=== PATIENT | male | born 1990 | race Caucasian/White ===

== ENCOUNTER 2016-10-15 22:05 | Inpatient (IN) | payer MEDICAID ==
[~2016-10-15] VITALS: Ht 182.9 cm; Wt 64.5 kg
[2016-10-15 22:58] LABS: BASOPHILS 1.9 % (0.0-2.0); EOSINOPHILS 1.1 % (0-7); HEMATOCRIT 40.4 % (42.0-54.0); LYMPHOCYTES 32.2 % (15-50); MCH 31.8 pg (26.0-34.0); MCHC 34.7 g/dL (31.0-37.0); MCV 91.8 fL (80.0-100.0); MEAN PLATELET VOLUME 9.2 fL (7.4-10.4); MONOCYTES 14.2 % (2-11); NEUTROPHILS 50.6 % (40-80); PLATELET COUNT 264 10x3/uL (130-400); RDW 12.5 % (11.5-14.5); WBC 4.7 10x3/uL (4.8-10.8)
[2016-10-15 23:11] LABS: ALBUMIN 3.7 g/dL (3.4-5.0); ALKALINE PHOSPHATASE 56 U/L (46-116); ALT (SGPT) 22 U/L (10-68); BILIRUBIN - TOTAL 0.27 mg/dL (0.2-1.3); CALC OSMOLALITY 275 mosm/kg (275-300); CALCIUM 9.1 mg/dL (8.5-10.1); CARBON DIOXIDE 29.5 mmol/L (21.0-32.0); CHLORIDE - SERUM 104 mmol/L (98-107); GLUCOSE 108 mg/dL (74-106); POTASSIUM - SERUM 3.6 mmol/L (3.5-5.1); SODIUM 139 mmol/L (136-145); UREA NITROGEN 4 mg/dL (7-18); eGFR NON AFRICAN AMERICAN > 90 mL/min (90-120)
[2016-10-15 23:37] LABS: UDS - AMPHET NEGATIVE QUAL (NEGATIVE); UDS - BARB NEGATIVE QUAL (NEGATIVE); UDS - BENZO NEGATIVE QUAL (NEGATIVE); UDS - COCAINE NEGATIVE QUAL (NEGATIVE); UDS - METH NEGATIVE QUAL (NEGATIVE); UDS - OPIATE NEGATIVE QUAL (NEGATIVE); UDS - PCP NEGATIVE QUAL (NEGATIVE); UDS - THC POSITIVE QUAL (NEGATIVE)
[2016-10-15 23:40] LABS: APPEARANCE CLEAR (CLEAR); BILIRUBIN NEGATIVE (NEGATIVE); COLOR STRAW (YELLOW); GLUCOSE NEGATIVE (NEGATIVE); KETONE NEGATIVE (NEGATIVE); LEUKOCYTE ESTERASE NEGATIVE (NEGATIVE); NITRITE NEGATIVE (NEGATIVE); PROTEIN NEGATIVE (NEGATIVE); UROBILINOGEN NORMAL (NORMAL)
[2016-10-16] VITALS (24 sets, daily range): BP systolic 101–132; BP diastolic 67–96; Ht 182.9 cm; Wt 64.5 kg
--- NOTE | 2016-10-16 02:15 | NUR ---
PT ARRIVED ON UNIT VIA STRETCHER, PT HOOKED TO MONITORS, PT MAKING GURGLING SOUNDS, CRACKLES HEARD IN ALL LOBES, PT SUCTIONED AT THIS TIME, BLACK AND BLOODY SECRETIONS NOTED, PT HAVING APNEIC EPISODES, DR. ROE NOTIFIED IN ER OF NEED OF INTUBATION, S1S2, CM-ST, PATENT RIGHT FA PIV...BICARB GTT INITIATED AT THIS TIME, PATENT LEFT FA PIV S/L, ABDOMEN IS FLAT WITH ACTIVE BS, PATENT F/C WITH YELLOW UOP, NO EDEMA NOTED, ALL PPP, VSS,
--- NOTE | 2016-10-16 02:20 | NUR ---
PHYSICIANS PAGED FOR UPDATE ON RR STATUS. 0230 DR ROE AT BEDSIDE UPDATE GIVEN ON PT STATUS DECISION MADE TO INTUBATE NO COUGH/GAG REFLEX NOTED BY NT SUCTION. 0240 SUCCESSFUL INTUBATION VENT SETTINGS OBTAINED VSS O2 SAT 98% NEW ORDERS RECIEVED WILL ADM. DR MARKHAM CALLED BACK NEW ORDERS RECIEVED. WILL CONSULT DR BURTON
--- NOTE | 2016-10-16 05:00 | NUR ---
NO CHANGES IN STATUS AT THIS TIME. VSS. WILL MONITOR
--- NOTE | 2016-10-16 07:00 | NUR ---
REPORT RECEIVED. ASSESSMENT COMPLETED. PATIENT REMAINS ON VENT WITH NO SEDATION. PATIENT SUPINE, WITHDRAWLS TO PAIN ONLY. EYES ARE 3 AND FIXED. WILL CONTINUE TO MONITOR.
--- NOTE | 2016-10-16 07:36 | NUR ---
CONTACTED DR SIGNER FOR CONSULT. NO OTHER CHANGES IN STATUS AT THIS TIME. VSS. WILL MONITOR.
--- NOTE | 2016-10-16 10:03 | NUR ---
PATIENT IS ON THE VENT. HE IS AN OVERDOSE OF UNKNOWN SUBSTANCE. PATIENT IS NOT ABLE TO ANSWER ANY QUESTIONS AT THIS TIME AND NO FAMILY HERE TO INTERVIEW. CM TO FOLLOW.
--- NOTE | 2016-10-16 10:18 | NUR ---
NO NOTATION THAT POISON CONTROL NOTIFIED. POISON CONTROL CALLED, SPOKE WITH BEBE. INFORMATION GIVEN REQUESTED. PER BEBE, THERE ARE NO RECOMMENDATIONS IN ADDITION TO THE ONES WE ARE CURRENTLY DOING. HE STATED WITH AMITRIPTYLINE THE CRITICAL PERIOD IS 6-8 HOURS AFTER INGESTIONS. HE STATED THAT THERE MAY STILL BE SOME LATENT EFFECTS OF THE GEODON IF THESE WERE THE MEDICATIONS THE PATIENT TOOK. HE STATED POISON CONTROL WILL CONTINUE TO MONITOR. THIS NURSE WILL CONTINUE TO MONITOR.
--- NOTE | 2016-10-16 11:12 | NUR ---
DR SINGER HERE, VENT SETTINGS CHANGED BY HIM. TV NOW 600, A/C 12. PATIENT REMAINS THE SAME. WILL CONTINUE TO MONITOR.
--- NOTE | 2016-10-16 14:55 | NUR ---
DR JONES HERE. SPOKE WITH ME AND JEANIE GALLEGO. HE STATED THAT DR SHAH WOULD BE ON THIS WEEKEND IF NEEDED, BUT THE PATIENT WAS GOING TO NEED TO BE PLACED IN AN INPATIENT UNIT ON DISCHARGE. KIERSTEN TO WORK ON.
--- NOTE | 2016-10-16 18:18 | NUR ---
PATIENT RESTING COMFORTABLE AT THIS TIME. SKIN FELT WARMER TO TOUCH. TEMPORAL TEMP WAS 99.1. PULLED PATIENTS COVER OFF AND LEFT SHEET OVER HIM. WILL MONITOR.
--- NOTE | 2016-10-16 18:42 | NUR ---
PATIENT HAS WOKE UP. HE IS CURRENTLY TRYING TO COME OUT OF THE BED. PROPOFOL STARTED PER ORDERS. WILL TITRATE UNTIL RELAXED.
--- NOTE | 2016-10-16 19:15 | NUR ---
REPORT RECIEVED, SHIFT ASSESSMENT COMPLETE, PT IS SEDATED ON VENT, AROUSED TO DEEP STIMULI, ON 30% FIO2 WITH 95% O2 SAT. CRACKLES HEARD IN ALL LOBES, S1S2, CM-ST, PATENT RIGHT WRIST PIV....SEE FLOW SHEET...ABDOMENS IS FLAT WITH HYPO BS, PATENT OGT WITH BROWN DRAINAGE NOTED, PATENT F/C WITH YELLOW UOP, NO EDEMA NOTED, ALL PPP, VSS, WILL CON'T TO MONITOR
--- NOTE | 2016-10-16 21:14 | NUR ---
COMPLETE BATH AND LINEN CHANGE, PT TOLERATED WELL
--- NOTE | 2016-10-16 23:21 | NUR ---
REASSESSMENT COMPLETE PER FLOW SHEET. VSS. NO NEW CHNAGES AT THIS TIME. WILL CONTINUE TO MONITOR.
[2016-10-17] VITALS (24 sets, daily range): BP systolic 113–140; BP diastolic 67–88
--- NOTE | 2016-10-17 01:15 | NUR ---
REPOSITIONED FOR COMFORT, WILL CON'T TO MONITOR
--- NOTE | 2016-10-17 03:15 | NUR ---
REASSESSMENT COMPLETE, NO CHANGES NOTED, REPOSITIONED FOR COMFORT, WILL CON'T TO MONITOR
--- NOTE | 2016-10-17 05:16 | NUR ---
REPOSITIONED FOR COMFORT, ORAL CARE PROVIDED
--- NOTE | 2016-10-17 08:51 | NUR ---
Nutrition follow-up: Pt remains intubated; OGT to LIWS with brown drainage Sedated with propofol NPO Recommend starting Pulmocare FS @ 20 ml/hr with gradual increase to goal rate of 55 ml/hr with 25 ml H2O flush every hour. RDN following.
--- NOTE | 2016-10-17 10:17 | NUR ---
PATIENT REMAINS ON THE VENT. HE IS NOT ABLE TO ANSWER QUESTIONS. I HAVE NOT SEEN ANY FAMILY HERE TO INTERVIEW. CM TO FOLLOW.
[2016-10-17 11:19] LABS: BASOPHILS 0.1 % (0.0-2.0); EOSINOPHILS 0 % (0-7); HEMATOCRIT 38.1 % (42.0-54.0); IMMATURE GRANULOCYTES 0.8 % (0-5); LYMPHOCYTES 4.2 % (15-50); MCH 32.1 pg (26.0-34.0); MCHC 34.1 g/dL (31.0-37.0); MEAN PLATELET VOLUME 9.4 fL (7.4-10.4); MONOCYTES 7.9 % (2-11); RBC 4.05 10x6/uL (4.20-6.10); RDW 12.9 % (11.5-14.5)
[2016-10-17 11:23] LABS: MCV 94.1 fL (80.0-100.0); PLATELET COUNT 187 10x3/uL (130-400); WBC 16.6 10x3/uL (4.8-10.8)
--- NOTE | 2016-10-17 11:40 | NUR ---
PLACED ON CPAP PER DR. SINGER.
[2016-10-17 11:50] LABS: ALBUMIN 2.9 g/dL (3.4-5.0); ALKALINE PHOSPHATASE 52 U/L (46-116); ALT (SGPT) 21 U/L (10-68); BILIRUBIN - TOTAL 0.53 mg/dL (0.2-1.3); CALC OSMOLALITY 276 mosm/kg (275-300); CALCIUM 8.7 mg/dL (8.5-10.1); CARBON DIOXIDE 30.8 mmol/L (21.0-32.0); CHLORIDE - SERUM 99 mmol/L (98-107); CREATININE - SERUM 1.1 mg/dL (0.6-1.3); GLUCOSE 118 mg/dL (74-106); POTASSIUM - SERUM 3.4 mmol/L (3.5-5.1); PROTEIN - SERUM 5.9 g/dL (6.4-8.2); SODIUM 139 mmol/L (136-145); eGFR NON AFRICAN AMERICAN 86 mL/min (90-120)
[2016-10-17 11:51] LABS: UREA NITROGEN 8 mg/dL (7-18)
--- NOTE | 2016-10-17 12:56 | NUR ---
REMAINS ON CPAP. AWAITING BLOOD GAS.
--- NOTE | 2016-10-17 15:03 | NUR ---
UPDATE GIVEN TO POISON CONTROL.
--- NOTE | 2016-10-17 16:00 | NUR ---
PT EXTUBATED TO 2L NC PER R.T.
--- NOTE | 2016-10-17 23:30 | NUR ---
1929- REPORT RECVD. CARE ASSUMED. INITIAL ASSMNT COMPLETED. SEE FLOWSHEET FOR ALL FINDINGS. CONFUSED, RESTLESS... GARBLED SPEECH. PERRLA. RESP SHALLOW. LUNGS COARSE THRU OUT. DIM IN BASES. SPO2 97% ON O2 AT [address] ON THE MONITOR. TEMP 99.0. COOLING EFFORTS MADE. PULSES PALP. SCDS ON. ABD SOFT. BSA X4. F/C PATENT WITH CLR YELLOW UOP. HOB UP. C/L IN REACH. CONT CURRENT POC. 2100- NO VISITORS. REMAINS CONFUSED ANT RESTLESS. VSS. CONT POC. 0- REASSESSMENT COMPLETED. SEE FLOWSHEET FOR ALL FINDINGS. CONFUSED, RESTLESS... GARBLED SPEECH. PERRLA. RESP SHALLOW. LUNGS COARSE THRU OUT. DIM IN BASES. SPO2 97% ON O2 AT [address] ON THE MONITOR. AFEBRILE. PULSES PALP. SCDS ON. ABD SOFT. BSA X4. F/C PATENT WITH CLR YELLOW UOP. HOB UP. C/L IN REACH. CONT CURRENT POC.
[2016-10-18] VITALS (24 sets, daily range): BP systolic 119–139; BP diastolic 67–88
--- NOTE | 2016-10-18 01:30 | NUR ---
RESTLESS AND CONFUSED. ATTEMPTS TO GET OOB. BED ALARM ON. VSS. SR ON THE MONITOR. SPO2 97% ON O2 AT 2 LPM NC. HOB UP. C/L IN REACH. CONT CURRENT POC.
--- NOTE | 2016-10-18 03:30 | NUR ---
REASSESSMENT COMPLETED. SEE FLOWSHEET FOR ALL FINDINGS. CONFUSED, RESTLESS... GARBLED SPEECH. PERRLA. RESP SHALLOW. LUNGS COARSE THRU OUT. DIM IN BASES. SPO2 97% ON O2 AT [address] ON THE MONITOR. AFEBRILE. PULSES PALP. SCDS ON. ABD SOFT. BSA X4. F/C PATENT WITH CLR YELLOW UOP. HOB UP. C/L IN REACH. CONT CURRENT POC.
--- NOTE | 2016-10-18 05:00 | NUR ---
REMAINS CONFUSED. RESTLESS. PULLING AT F/C AND PIV... BILATERAL SOFT WRIST RESTRAINTS PLACED PER PROTOCOL PER SR LUCRECIA. VSS. HOB UP. CONT CURRENT POC.
[2016-10-18 05:03] LABS: BASOPHILS 0.1 % (0.0-2.0); EOSINOPHILS 0.1 % (0-7); HEMOGLOBIN 13.2 g/dL (13.5-17.5); IMMATURE GRANULOCYTES 1.3 % (0-5); LYMPHOCYTES 3.3 % (15-50); MCH 31.8 pg (26.0-34.0); MCHC 33.8 g/dL (31.0-37.0); MEAN PLATELET VOLUME 9.5 fL (7.4-10.4); MONOCYTES 6.6 % (2-11); NEUTROPHILS 88.6 % (40-80); PLATELET COUNT 192 10x3/uL (130-400); RBC 4.15 10x6/uL (4.20-6.10); RDW 12.8 % (11.5-14.5); WBC 15.1 10x3/uL (4.8-10.8)
--- NOTE | 2016-10-18 05:20 | NUR ---
RESTING WITH NO DISTRESS. VSS. REMAINS CONFUSED. HOB UP. BED ALARM ON. CONT CURRENT POC.
[2016-10-18 05:24] LABS: ALBUMIN 2.7 g/dL (3.4-5.0); ALKALINE PHOSPHATASE 57 U/L (46-116); ALT (SGPT) 20 U/L (10-68); BILIRUBIN - TOTAL 0.71 mg/dL (0.2-1.3); CARBON DIOXIDE 31.2 mmol/L (21.0-32.0); CHLORIDE - SERUM 101 mmol/L (98-107); CREATININE - SERUM 1.2 mg/dL (0.6-1.3); GLUCOSE 107 mg/dL (74-106); POTASSIUM - SERUM 3.2 mmol/L (3.5-5.1); PROTEIN - SERUM 6.3 g/dL (6.4-8.2); SODIUM 141 mmol/L (136-145); eGFR NON AFRICAN AMERICAN 78 mL/min (90-120)
[2016-10-18 05:29] LABS: CALC OSMOLALITY 280 mosm/kg (275-300); UREA NITROGEN 12 mg/dL (7-18)
[2016-10-18] MEDS ORDERED: KLONOPIN1 MG PO (08:14)
[2016-10-18] MEDS ORDERED: AMITRIPTYLINE100 MG PO (08:15)
[2016-10-18] MEDS ORDERED: ULTRAM50 MG PO (08:15)
[2016-10-18] MEDS ORDERED: DESERYL100 MG PO (08:23)
--- NOTE | 2016-10-18 23:30 | NUR ---
1929- REPORT RECVD. CARE ASSUMED. INITIAL ASSMNT COMPLETED. SEE FLOWSHEET FO ALL FINDINGS. CONFUSED, RESTLESS... GARBLED SPEECH. PERRLA. RESP SHALLOW. LUNGS COARSE THRU OUT. DIM IN BASES. SPO2 97% ON O2 AT [address] ON THE MONITOR. TEMP 99.0. COOLING EFFORTS MADE. PULSES PALP. SCDS ON. ABD SOFT. BSA X4. F/C PATENT WITH CLR YELLOW UOP. RESTRAINTS PER PROTOCOL. HOB UP. C/L IN REACH. CONT CURRENT POC. 2100- NO VISITORS. REMAINS CONFUSED ANT RESTLESS. VSS. RESTRAINTS PER PROTOCOL. HOB UP. C/L IN REACH. CONT POC. 2330- REASSESSMENT COMPLETED. SEE FLOWSHEET FOR ALL FINDINGS. CONFUSED, RESTLESS... GARBLED SPEECH. PERRLA. RESP SHALLOW. LUNGS COARSE THRU OUT. DIM IN BASES. SPO2 97% ON O2 AT [address] ON THE MONITOR. AFEBRILE. PULSES PALP. SCDS ON. ABD SOFT. BSA X4. F/C PATENT WITH CLR YELLOW UOP. RESTRAINTS PER PROTOCOL. HOB UP. C/L IN REACH. CONT CURRENT POC.
[2016-10-19] VITALS (22 sets, daily range): BP systolic 107–163; BP diastolic 52–89
--- NOTE | 2016-10-19 01:27 | NUR ---
RESTING WITH NO DISTRESS. VSS. ST ON THE MONITOR. REMAINS CONFUSED. REPOSITONS SELF IN BED. RESTLESS AT TIMES. SPO2 96% ON O2 AT 4 LPM NC. HOB UP. C/L IN REACH. REMAINS IN RESTRAINTS FOR SAFETY. CONT CURRENT POC.
--- NOTE | 2016-10-19 03:00 | NUR ---
BATH GIVEN. LINENS CHANGED, RESTRAINTS REMOVED. MORE ALERT. VERBALIZES UNDERSTANDING. VSS. PT HAD REMOVED O2...ABGS REFLECT RA. SPO2 92% ON RA. PLACED ON O2 AT 2 LPM. WILL CONT TO WEAN TOLERATED.
--- NOTE | 2016-10-19 03:30 | NUR ---
REASSESSMENT COMPLETED PER FLOWSHEET. SEE FOR ALL FINDINGS. ALERT AND ORIENTED AT THIS TIME. SPEECH CLEAR..VERBALIZES NEEDS. RESP SHALLOW. LUNGS COARSE. COUGH/DB ENCUOURAGED. O2 AT [address] ON THE MONITOR. AFEBRILE. PASSING FLATUS. BSA X4. F/C PATENT WITH CONCENTRATED UOP. HOB UP. C/L IN REACH. BED ALARM ON. CONT CURRENT POC.
[2016-10-19 05:17] LABS: BASOPHILS 0.3 % (0.0-2.0); EOSINOPHILS 1.1 % (0-7); HEMATOCRIT 37.7 % (42.0-54.0); HEMOGLOBIN 12.6 g/dL (13.5-17.5); IMMATURE GRANULOCYTES 0.5 % (0-5); LYMPHOCYTES 3.9 % (15-50); MCH 31.2 pg (26.0-34.0); MCHC 33.4 g/dL (31.0-37.0); MCV 93.3 fL (80.0-100.0); MEAN PLATELET VOLUME 9.3 fL (7.4-10.4); MONOCYTES 7.5 % (2-11); NEUTROPHILS 86.7 % (40-80); PLATELET COUNT 210 10x3/uL (130-400); RBC 4.04 10x6/uL (4.20-6.10); RDW 12.7 % (11.5-14.5); WBC 14.6 10x3/uL (4.8-10.8)
--- NOTE | 2016-10-19 05:20 | NUR ---
RESTING IN BED WITH NO DISTRESS. APPROPRIATE BEHAVIORS SEEN. VSS. SPO2 96% ON O2 AT 2 LPM NC. HOB UP. C/L IN REACH. CONT CURRENT POC.
[2016-10-19 05:57] LABS: ALBUMIN 2.4 g/dL (3.4-5.0); ALKALINE PHOSPHATASE 63 U/L (46-116); ALT (SGPT) 18 U/L (10-68); CALCIUM 8.4 mg/dL (8.5-10.1); CARBON DIOXIDE 26.9 mmol/L (21.0-32.0); CHLORIDE - SERUM 102 mmol/L (98-107); GLUCOSE 103 mg/dL (74-106); POTASSIUM - SERUM 3.6 mmol/L (3.5-5.1); PROTEIN - SERUM 6.5 g/dL (6.4-8.2); SODIUM 138 mmol/L (136-145); eGFR NON AFRICAN AMERICAN > 90 mL/min (90-120)
[2016-10-19 05:58] LABS: CALC OSMOLALITY 277 mosm/kg (275-300); UREA NITROGEN 19 mg/dL (7-18)
--- NOTE | 2016-10-19 14:28 | NUR ---
PT MOTHER VISITED. LEAVING UPSET DUE TO PT "ASKING ME TO GIVE HIM PAIN PILLS". PT REQUESTS TO CALL HIS AUNT EDGAR. INFORMED THAT HE CAN NOT CALL BUT THIS NURSE WOULD CALL WITH HIS PERMISSION. STATES HE "IS GONNA WIG OUT IN HERE" NO FURTHER NEEDS.
--- NOTE | 2016-10-19 23:30 | NUR ---
1929-REPORT RECVD. CARE ASSUMED. INITIAL ASSMNT COMPLETED. SEE FLOWSHEET FOR ALL FINDINGS. SUICIDAL PRECAUTIONS IN PLACE. RESTING WITH NO DISTRESS. VSS. SPO2 95% ON RA. OCC WEAK STAR ROUTE MAIL DRIVER COUGH SEEN. LUNGS REMAIN COARSE THRU OUT ALL LOBES. DIM IN BASES. ST ON THE MONITOR. AFEBRILE. REFUSES SCDS. UP AD LITA TO BSC. VOIDING NO DIFF TO URINAL. PLEASANT AND COOPERATIVE AT THIS TIME. DENIES DISCOMFORT/NEEDS. PO FLUIDS AN REG DIET PROVIDED PER REQUEST. HOB UP. C/L IN REACH. CONT CURRENT POC. 2100- NO VISITORS. RESTING WITH EYES CLOSED. NO NEEDS VOICED. C/L IN REACH. 2199- HS SNACK AND PO FLUIDS PROVIDED. 2329- REASSESSMENT COMPLETED. SEE FLOWSHEET FOR ALL FINDINGS. RESTING WITH NO DISTRESS. VSS. SPO2 95% ON RA. OCC WEAK STAR ROUTE MAIL DRIVER COUGH SEEN. LUNGS REMAIN COARSE THRU OUT ALL LOBES. DIM IN BASES. ST ON THE MONITOR. AFEBRILE. REFUSES SCDS. UP AD LITA TO BSC. VOIDING NO DIFF TO URINAL. PLEASANT AND COOPERATIVE AT THIS TIME. DENIES DISCOMFORT/NEEDS. PO FLUIDS AN REG DIET PROVIDED PER REQUEST. HOB UP. C/L IN REACH. CONT CURRENT POC.
[2016-10-20] VITALS (21 sets, daily range): BP systolic 94–143; BP diastolic 64–95
--- NOTE | 2016-10-20 01:20 | NUR ---
RESTING WITH NO DISTRESS. VSS. C/L IN REACH. .CONT POC.
--- NOTE | 2016-10-20 03:25 | NUR ---
REASSESSMENT COMPLETED. SEE FLOWSHEET FOR ALL FINDINGS. RESTING WITH NO DISTRESS. VSS. SPO2 95% ON RA. OCC WEAK REGROOVER COUGH SEEN. LUNGS REMAIN COARSE THRU OUT ALL LOBES. DIM IN BASES. ST ON THE MONITOR. AFEBRILE. REFUSES SCDS. UP AD LITA TO BSC. VOIDING NO DIFF TO URINAL. PLEASANT AND COOPERATIVE AT THIS TIME. DENIES DISCOMFORT/NEEDS. PO FLUIDS AND REG DIET PROVIDED PER REQUEST. HOB UP. C/L IN REACH. CONT CURRENT POC.
[2016-10-20 04:49] LABS: BASOPHILS 0.3 % (0.0-2.0); EOSINOPHILS 5.1 % (0-7); HEMATOCRIT 35.3 % (42.0-54.0); HEMOGLOBIN 11.8 g/dL (13.5-17.5); IMMATURE GRANULOCYTES 0.6 % (0-5); LYMPHOCYTES 8.6 % (15-50); MCH 31.1 pg (26.0-34.0); MCHC 33.4 g/dL (31.0-37.0); MCV 93.1 fL (80.0-100.0); MEAN PLATELET VOLUME 9.5 fL (7.4-10.4); MONOCYTES 11.6 % (2-11); NEUTROPHILS 73.8 % (40-80); PLATELET COUNT 273 10x3/uL (130-400); RBC 3.79 10x6/uL (4.20-6.10); RDW 12.6 % (11.5-14.5); WBC 8.7 10x3/uL (4.8-10.8)
[2016-10-20 05:08] LABS: ALBUMIN 2.3 g/dL (3.4-5.0); ALKALINE PHOSPHATASE 58 U/L (46-116); BILIRUBIN - TOTAL 0.55 mg/dL (0.2-1.3); CALC OSMOLALITY 276 mosm/kg (275-300); CALCIUM 8.7 mg/dL (8.5-10.1); CARBON DIOXIDE 27.3 mmol/L (21.0-32.0); CHLORIDE - SERUM 103 mmol/L (98-107); CREATININE - SERUM 0.9 mg/dL (0.6-1.3); GLUCOSE 102 mg/dL (74-106); POTASSIUM - SERUM 3.6 mmol/L (3.5-5.1); PROTEIN - SERUM 6.5 g/dL (6.4-8.2); SODIUM 138 mmol/L (136-145); UREA NITROGEN 15 mg/dL (7-18); eGFR NON AFRICAN AMERICAN > 90 mL/min (90-120)
[2016-10-20 05:16] LABS: ALT (SGPT) 25 U/L (10-68)
--- NOTE | 2016-10-20 05:30 | NUR ---
RESTING WITH NO DISTRESS. VSS. ST ON THE MONITOR. DENIES NEEDS/DISCOMFORT. UP AD LITA TO BSC. VOIDING TO URINAL. PLEASANT. NO BEHAVIORS. HOB UP. C/L IN REACH. CONT CURRENT POC.
--- NOTE | 2016-10-20 07:30 | NUR ---
ASSESSMENT COMPLETE. AAO X4. AGITATED BECAUSE HE "HAS NOT BEEN RECEIVING HIS KLONOPIN." I TOLD HIM WE WOULD WAIT TILL THE DOCTOR GOT HERE TO EVALUATE HIS MEDICATIONS. HE SAID "IF I DONT GET MY MEDICATIONS I MIGHT WELL LEAVE." BEGAN RAISING HIS VOICE, I TOLD HIM I COULDNT RESTART THEM WITHOUT A DOCTOR ORDERING SO WE HAD TO WAIT TILL THE DOCTOR GOT HERE. THE PATIENT SAID "OKAY." BUT BECAME WITHDRAWN. S1S2 NOTED, RADIAL AND PEDAL PULSES PALP. SINUS TACHYCARDIA. DIMINISHED RLL, LLL. CRACKLES IN RUL, RML, PAPITO. ROOM AIR. HYPOACTIVE BOWEL SOUNDS X4. REPORTS DIARRHEA. RT WRIST PIV SL. FOR OTHER ASSESSMENT FINDINGS SEE FLOWSHEET.
--- NOTE | 2016-10-20 09:25 | NUR ---
NO VISITORS AT THIS TIME. REQUESTS KLONOPIN AGAIN. CALLED DR. SHIPMAN, NEW ORDERS RECEIVED
--- NOTE | 2016-10-20 10:09 | NUR ---
Nutrition follow-up: Diet: Regular PO intake ~75% of meals Labs reviewed Wt: 154# +BM RDN following.
--- NOTE | 2016-10-20 10:50 | NUR ---
DR. SHIPMAN AT BEDSIDE.
--- NOTE | 2016-10-20 11:15 | NUR ---
REASSESSMENT COMPLETE. PATIENT NOW CALM, NO AGITATION NOTED. FOR OTHER ASSESSMENT FINDINGS SEE FLOWSHEET. DENIES CURRENT SUICIDAL IDEATION.
--- NOTE | 2016-10-20 11:38 | NUR ---
SPOKE WITH PATIENT'S MOTHER PER PATIENT REQUEST, SAID SHE WOULD NOT BE COMING UP TODAY BUT WOULD SEE IF OTHER RELATIVES COULD COME VISIT
--- NOTE | 2016-10-20 11:48 | NUR ---
NOTIFIED PHARMACY THAT [facility] IS OUT OF VOLTAREN AND WELLBUTRIN
--- NOTE | 2016-10-20 13:02 | NUR ---
SPOKE WITH PATIENT'S AUNT PER PATIENT REQUEST. SAID SHE WOULD BE UP TOMORROW.
--- NOTE | 2016-10-20 13:16 | CN ---
PATIENT NAME:RACHEL HEATH MEDICAL RECORD: [id number] : 90 LOCATION:[facility].2306 ADMIT DATE: 10/16/16 ACCOUNT: [id number] CONSULTING PHYSICIAN: TOMASZ JONES MD REFERRING PHYSICIAN: ABDIRAHMAN RICHEY MD DATE OF CONSULTATION: 10/16/2016 IDENTIFYING DATA: The patient is 26 years old and he is admitted to the hospital secondary to an overdose. CHIEF COMPLAINT: None. HISTORY OF PRESENT ILLNESS: The patient apparently is chronically mentally ill. He called EMS or told his family he was going to kill himself and they called the EMS and the patient was brought to the hospital. Interestingly, his urine drug screen was only positive for marijuana and his home medications include both an opiate and a benzodiazepine. In addition to the opiate and benzodiazepine, he also takes 2 antipsychotics and amitriptyline. Nurse tells me that a family member called and said that they think he primarily overdosed on the amitriptyline and Geodon. This would make sense given the outcome of the urine drug screen. The patient unfortunately had respiratory distress. He is currently on a ventilator and cannot be interviewed. ASSESSMENT: Overdose 1. Overdose. 2. Probable major depression with psychosis versus schizophrenia or bipolar disorder. PLAN: The patient is not interviewable, please call when he. Given his situation, I am absolutely certain that he is going to require inpatient psychiatric care and I would refer him to the closest receiving facility that will accept him. There is little or no explanation that I cannot imagine that would convince me that he is appropriate for outpatient given the fact that he is on a ventilator, deliberately took an overdose and has a known history of mental illness. TRANSINT:[id number] Voice Confirmation ID: [id number] DOCUMENT ID: [id number] TOMASZ JONES MD at 1316 CC: [id number] DICTATION DATE: 10/16/16 1500 FEDERAL MEDIATOR: 10/16/16 1741 ADM IN [facility] [address] [place] [address]
--- NOTE | 2016-10-20 15:00 | NUR ---
REASSESSMENT COMPLETE. SEE FLOWSHEET FOR DETAILS.
--- NOTE | 2016-10-20 15:33 | NUR ---
CALLED LONG TERM, SENT FAX DOWN OF CONSULT. THEY SAID THEY WOULD CONTACT THE CONSULTED PSYCH PHYSCIAN
--- NOTE | 2016-10-20 17:30 | NUR ---
DR. SHIPMAN IN UNIT. ASKED HER IF PATIENT COULD HAVE SOME "SLEEPING MEDICINE" PER PATIENT REQUEST. SHE SAID NO. PATIENT WILL RECEIVE EVENING DOSE OF KLONOPIN.
--- NOTE | 2016-10-20 18:54 | NUR ---
PATIENT SAID "ONCE THE PSYCH DOCTOR COMES TOMORROW, I'M GETTING OUT OF HERE, I DONT CARE WHAT HE SAYS, I'M GOING HOME." I ASKED PATIENT IF HE WAS FEELING ANXIOUS AND WOULD LIKE HIS KLONOPIN NOW, HE SAID HE WOULD LIKE IT NOW. WILL GIVE EARLY WHEN MED COUNT IS COMPLETED.
--- NOTE | 2016-10-20 19:15 | NUR ---
REPORT RECEIVED AND CARE ASSUMED. INITIAL SHIFT ASSESSMENT COMPLETED. PT COOPERATIVE AND PLEASANT AAOX4. ADMITS HE IS IN PAIN STATING HIS LEFT HAND HURTS ALL THE TIME DUE TO OLD INJURY. REQUESTS MEDICATION FOR PAIN TO BE GIVEN LATER. PT IS IN DROPLET ISOLATION DUE TO MRSA IN SPUTUM. IS MONITORED WITH SUICIDAL PRECAUTIONS WELL. BED IS IN DIRECT VIEW OF NURSING STAFF. CONTINUE TO MONITOR PER STANDARD ICU PROTOCOL WITH ALL ALARMS IN PLACE.
--- NOTE | 2016-10-20 21:00 | NUR ---
HS SNACK PROVIDED ATE 100%, MEDS GIVEN WITH NO SWALLOWING DIFFICULTY. NO VISITORS AT THIS TIME
--- NOTE | 2016-10-20 23:37 | NUR ---
RECEIVED REPORT AT 2255. 2300 ASSESSMENT COMPLETED. SEE FLOWSHEET FOR DETAILS. PT AWAKE AND ORIENTED X4. VSS WILL CONTINUE TO MONITOR.
[2016-10-21] VITALS (14 sets, daily range): BP systolic 121–152; BP diastolic 71–100
--- NOTE | 2016-10-21 01:00 | NUR ---
BROUGHT PT SODA PER REQUEST. NO OTHER CHANGES AT THIS TIME. VSS. WILL MONITOR.
--- NOTE | 2016-10-21 03:14 | NUR ---
RE ASSESSMENT COMPLETED SEE ASSESSMENT FOR FULL DETAILS. VSS WILL CONTINUE TO MONITOR.
[2016-10-21 04:59] LABS: BASOPHILS 0.4 % (0.0-2.0); EOSINOPHILS 6.6 % (0-7); HEMATOCRIT 35.7 % (42.0-54.0); IMMATURE GRANULOCYTES 0.4 % (0-5); LYMPHOCYTES 16.3 % (15-50); MCHC 33.6 g/dL (31.0-37.0); MCV 92.2 fL (80.0-100.0); MEAN PLATELET VOLUME 9.1 fL (7.4-10.4); MONOCYTES 15.9 % (2-11); NEUTROPHILS 60.4 % (40-80); PLATELET COUNT 252 10x3/uL (130-400); RBC 3.87 10x6/uL (4.20-6.10); RDW 12.5 % (11.5-14.5); WBC 4.9 10x3/uL (4.8-10.8)
--- NOTE | 2016-10-21 05:00 | NUR ---
CLEANED PT ROOM. GAVE PT CHANNEL GUIDE. NO OTHER CHANGES AT THIS TIME. VSS. WILL MONITOR.
[2016-10-21 05:13] LABS: ALBUMIN 2.4 g/dL (3.4-5.0); ALKALINE PHOSPHATASE 57 U/L (46-116); CALC OSMOLALITY 277 mosm/kg (275-300); CALCIUM 8.8 mg/dL (8.5-10.1); CARBON DIOXIDE 28.9 mmol/L (21.0-32.0); CHLORIDE - SERUM 104 mmol/L (98-107); CREATININE - SERUM 0.9 mg/dL (0.6-1.3); GLUCOSE 106 mg/dL (74-106); MAGNESIUM - SERUM 2.1 mg/dL (1.8-2.4); PHOSPHOROUS 4.4 mg/dL (2.5-4.9); POTASSIUM - SERUM 3.6 mmol/L (3.5-5.1); PROTEIN - SERUM 6.7 g/dL (6.4-8.2); SODIUM 139 mmol/L (136-145); UREA NITROGEN 12 mg/dL (7-18); eGFR NON AFRICAN AMERICAN > 90 mL/min (90-120)
[2016-10-21 05:20] LABS: ALT (SGPT) 53 U/L (10-68)
--- NOTE | 2016-10-21 07:00 | NUR ---
REC'D REPORT AND RESUMED CARE, AAA, VSS, DENIES PAIN AT THIS TIME, ASSESSMENT COMPLETE PER FLOWSHEET, CALL LIGHT IN REACH, SELF REPOSITIONS
--- NOTE | 2016-10-21 09:00 | NUR ---
AM MEDS AND BREAKFAST TRAY TO BEDSIDE, MEDS TAKEN WITHOUT DIFFICULTY, INDEPENDENT WITH TRAY SET UP AND EATING
--- NOTE | 2016-10-21 10:00 | NUR ---
SPUTUM EXPECTORATE COLLECTED BY PT, TAKEN TO LAB FOR EVAL
--- NOTE | 2016-10-21 10:20 | NUR ---
VOLTAREN 75 MG PO GIVEN FOR HAND PAIN 02/28 PER NOV ORDER
--- NOTE | 2016-10-21 10:43 | NUR ---
DR SHIPMAN AT BEDSIDE, STATUS UPDATED, PT AWAITING INPATIENT PLACEMENT
--- NOTE | 2016-10-21 12:25 | NUR ---
LUNCH TRAY TO BEDSIDE, INDEPENDENT WITH SET UP AND EATING
--- NOTE | 2016-10-21 12:40 | NUR ---
* Is the patient Alert and Oriented? Yes 0 * PCP KEVIN JUAREZ AT DR. CHAPPELL'S OFFICE 0 * Pharmacy [facility] 0 * Preadmission Environment Home with Family 0 * ADLs Independent 0 * Equipment None 0 * List name and contact numbers for known caregivers / representatives who currently or will assist patient after discharge: AUNT: EDGAR EVANS [phone] 0 * Community resources currently utilized None 0 * Additional services required to return to the preadmission environment? Yes 0 * Can the patient safely return to the preadmission environment? No 0 * Has this patient been hospitalized within the prior 30 days at any hospital? No 0 PATIENT STATES HE LIVES AT HOME WITH HIS AUNT AND UNCLE. HE STATES HIS AUNT ASSIT HIM WITH MEDICATION ADMINISTRATION. PATIENT STATES HE SEES KEVIN JUAREZ AT DR. CHAPPELL'S OFFICE. HE GETS HIM MEDS FROM [facility]. PATIENT IS AGREEING TO GO TO INPATIENT PSYCH FACILITY FOR TREATMENT. PATIENT STATES HE HAS BEEN TO SEVERAL PSYCH FACILITIES OVER THE YEARS. WILL SEEK PLACEMENT WHEN PATIENT IS MEDICALLY STABLE.
--- NOTE | 2016-10-21 13:25 | NUR ---
TRANSFERRED VIA BED TO 2316, ANIVALO, VSS, DENING PAIN, NO NEEDS AT THIS TIMEREPORT GIVEN TO JEANIE CRISTOBAL
--- NOTE | 2016-10-21 19:30 | NUR ---
ASSESSMENT COMPLETE. S1S2. RR CLEAR BILATERALLY IN UPPER LOBES; DIMINISHED BILATERALLY IN MID/LOWER LOBES. AAO. DROPLET ISO. PT AMBULATES INDEPENDENTLY; GAIT STEADY. RADIAL AND PEDAL PULSE +2. PERRLA. ON ROOM AIR.
--- NOTE | 2016-10-21 21:00 | NUR ---
PT TOOK MEDS W/O DIFFICULTY. DENIES PAIN. DENIES ANY FURTHER NEEDS AT THIS TIME. CALL LIGHT IN REACH. WILL CONTINUE TO MONITOR.
--- NOTE | 2016-10-21 23:15 | NUR ---
REASSESSMENT COMPLETE. NO CHANGES FROM PREVIOUS ASSESSMENT. CALL LIGHT IN REACH. WILL CONTINUE TO MONITOR.
--- NOTE | 2016-10-22 01:15 | NUR ---
PT RESTING; EYES CLOSED. VSS. CALL LIGHT IN REACH. WILL CONTINUE TO MONITOR.
[2016-10-22 03:00] VITALS: BP 115/76
--- NOTE | 2016-10-22 03:30 | NUR ---
REASSESSMENT COMPLETE. NO CHANGES FROM PREVIOUS ASSESSMENT. CALL LIGHT IN REACH. WILL CONTINUE TO MONITOR.
--- NOTE | 2016-10-22 04:45 | NUR ---
PT INDEPENDENTLY COMPLETED BATH; NEW GOWN SUPPLIED.
[2016-10-22 05:05] LABS: BASOPHILS 0.7 % (0.0-2.0); HEMATOCRIT 37.7 % (42.0-54.0); HEMOGLOBIN 12.6 g/dL (13.5-17.5); IMMATURE GRANULOCYTES 0.7 % (0-5); MCH 30.9 pg (26.0-34.0); MCHC 33.4 g/dL (31.0-37.0); MCV 92.4 fL (80.0-100.0); NEUTROPHILS 59.6 % (40-80); RBC 4.08 10x6/uL (4.20-6.10); RDW 12.6 % (11.5-14.5); WBC 5.4 10x3/uL (4.8-10.8)
[2016-10-22 05:14] LABS: PLATELET COUNT 312 10x3/uL (130-400)
[2016-10-22 05:37] LABS: ALBUMIN 2.5 g/dL (3.4-5.0); ALKALINE PHOSPHATASE 49 U/L (46-116); ALT (SGPT) 56 U/L (10-68); CALC OSMOLALITY 276 mosm/kg (275-300); CALCIUM 8.7 mg/dL (8.5-10.1); CARBON DIOXIDE 30.3 mmol/L (21.0-32.0); CHLORIDE - SERUM 103 mmol/L (98-107); CREATININE - SERUM 0.9 mg/dL (0.6-1.3); GLUCOSE 95 mg/dL (74-106); POTASSIUM - SERUM 3.4 mmol/L (3.5-5.1); PROTEIN - SERUM 6.7 g/dL (6.4-8.2); SODIUM 139 mmol/L (136-145); UREA NITROGEN 9 mg/dL (7-18); eGFR NON AFRICAN AMERICAN > 90 mL/min (90-120)
[2016-10-22 07:00] VITALS: BP 120/75
--- NOTE | 2016-10-22 07:45 | NUR ---
REPORT RECD PT CARE ASSUMED. PT IS ALERT AND ORINETED X 4. S1S2 NOTED, SR PER CM. SEE SHIFT ASSESSMENT FOR FURTHER DETAILS. PT REQUESTS TO SPEAK TO CHARGE NURSE. PATTERN CLERK SPEAKING WITH PT.
--- NOTE | 2016-10-22 07:50 | NUR ---
PATIENT HAS NORMAL DEBORA IN SPUTUM. I HAVE CONTACTED [facility] IN [place]. I SPOKE WITH PRITI AND HAVE FAXED PATIENT'S INFORMATION. WILL AWAIT CALL BACK.
--- NOTE | 2016-10-22 08:00 | NUR ---
BREAKFAST TRAY PROVIDED TO PT. PT REFUSES TRAY BUT ACCEPTS COFFEE.
--- NOTE | 2016-10-22 10:36 | NUR ---
NUTRITION MONITORING & EVAL CHART REVIEWED. REGULAR DIET. NOTE DC PLANNING. RD FOLLOWING
[2016-10-22 11:00] VITALS: BP 122/76
--- NOTE | 2016-10-22 12:00 | NUR ---
BREAKFAST PROVIDED TO PT. PT INDEPENDENT FEEDER.
--- NOTE | 2016-10-22 12:58 | NUR ---
PATIENT IS ACCEPTED TO [facility] IN [place]. I SPOKE WITH PRITI. PATIENT IS TO GO TO ROOM 225 BED 1. THE ACCEPTING PHYSCIAN IS DR. MARTINEZ. PATIENT CARE NURSE, RADHA, IS NOTIFIED OF ACCEPTANCE AND WILL CALL REPORT. SHE WILL LET PATIENT KNOW HE IS ACCEPTED AND SHE WILL CALL HIS AUNT TO LET HER KNOW HE IS ACCEPTED AND WHERE HE IS GOING.
[2016-10-22] MEDS ORDERED: LEVAQUIN750 MG PO (13:45)
[2016-10-22] MEDS ORDERED: CLEOCIN HCL300 MG PO (13:45)
[2016-10-22] MEDS ORDERED: WELLBUTRIN XL150 M1 PO (13:47)
[2016-10-22 15:00] VITALS: BP 112/76
--- NOTE | 2016-10-22 15:00 | NUR ---
[facility] HERE TO TRANSFER PT. ALL PAPERS HAVE BEEN SIGNED AND DOCUMENTED APPROPRIATLEY. REPORT HAS BEEN CALLED TO RECVING FACILTY AND PT IS STABLE FOR TRANSPORT.
--- NOTE | 2016-10-22 17:36 | CN ---
PATIENT NAME:RACHEL HETAH MEDICAL RECORD: [id number] : 90 LOCATION:[facility].2316 ADMIT DATE: 10/16/16 ACCOUNT: [id number] CONSULTING PHYSICIAN: TOMASZ JONES MD REFERRING PHYSICIAN: ABDIRAHMAN RICHEY MD DATE OF CONSULTATION: 10/21/2016 Psychiatric Consultation IDENTIFYING DATA: The patient is [id number] and he was admitted to the hospital on a voluntary basis secondary to an overdose. CHIEF COMPLAINT: Depression. HISTORY OF PRESENT ILLNESS: The patient apparently told his family was going to kill himself and then took a polysubstance overdose. By the time he was brought to the hospital, he was unresponsive and had to be intubated. He has been in the intensive care unit for several days now. He is now extubated, medically stable, a little bit hoarse, but able to talk with me just fine. The patient endorses numerous life stressors, ongoing psychosocial issues and many neurovegetative depressive symptoms. He denies evidence of a thinking disorder, but clearly his disorganization would be consistent with that and he also has an extensive psychiatric history and is taking numerous psychoactive medications including antipsychotics. MENTAL STATUS EXAMINATION: The patient is awake, alert and oriented to person, place, time and situation. The patient has a mood that is depressed and affect that is constricted. Thought processes are disorganized. Memory, concentration and abstraction abilities are moderately impaired and he is ambivalent about thoughts of self harm, but denies any thoughts of harming others or psychotic symptoms. ASSESSMENT: 1. Major depression versus bipolar disorder. 2. Status post overdose. PLAN: The patient is in need of inpatient psychiatric care. ____ for psychiatric difficulties. I would recommend that he be transferred to a psychiatric facility once medically stabilized. TRANSINT:[id number] Voice Confirmation ID: [id number] DOCUMENT ID: [id number] TOMASZ JONES MD at 1736 CC: [id number] DICTATION DATE: 10/21/16 1246 ARCGIS DEVELOPER: 10/21/16 1356 DIS IN 10/22/16 [place] [address]
--- NOTE | 2016-10-31 12:39 | CN ---
PATIENT NAME:RACHEL HEATH MEDICAL RECORD: [id number] : 89 LOCATION:[id number] ADMIT DATE: 10/16/16 ACCOUNT: [id number] CONSULTING PHYSICIAN: HANDY SINGER MD REFERRING PHYSICIAN: ELEONORA RICHEY MD DATE OF CONSULTATION: 10/16/2016 Pulmonary Consultation CONSULT REQUESTING PHYSICIAN: Eleonora Richey MD REASON FOR CONSULTATION: Acute respiratory failure, vent management. HISTORY OF PRESENT ILLNESS: Mr. Heath a 26-year-old gentleman who is now orally intubated and unresponsive. The history was taken by reviewing the patient's chart and talking to Dr. Richey and the nursing staff. The patient called EMS. He walked to the ambulance and the patient was brought into the hospital and then admitted to the ICU progressively. His mental status changes was getting worse and then he became unresponsive and the patient was electively orally intubated to protect his airway. He has multiple medications at home, hydrocodone, clonazepam, trazodone, risperidone, Geodon and amitriptyline as well as tramadol. His urine drug screen was only positive for the THC. There was also some intraventricular conduction delay and possibly he might have taken some amitriptyline. REVIEW OF SYSTEMS: Mainly in the history of present illness. PAST MEDICAL HISTORY: Multiple psych issues, on multiple medications. PAST SURGICAL HISTORY: Left hand for construction surgery times 3 after a crush injury. ALLERGIES: HE IS ALLERGIC TO PENICILLIN. HOME MEDICATIONS: As in HPI. PERSONAL AND SOCIAL HISTORY: The patient' smoking history is not known, but he is using marijuana possibly as a recreational drugs. FAMILY HISTORY: Unknown. PHYSICAL EXAMINATION: GENERAL: Now, the patient is orally intubated and sedated. VITAL SIGNS: The blood pressure is 117/79, pulse is 91, respiration is 14, temperature is 97.5, SPO2 is 100% on 30% oxygen. He is on assist control mechanical ventilation. HEENT: Conjunctivae are pink, sclerae nonicteric. NECK: Supple. No JVD. CHEST: Excursion is minimal equally on both sides. There is no wheeze, no rales. HEART: Rhythm regular, normal sound, no murmur. ABDOMEN: Soft, bowel sounds present. No hepatosplenomegaly. RECTAL: Deferred. EXTREMITIES: No cyanosis, no clubbing. There is no pedal edema. SKIN: Warm, normal turgor. CONSULT REPORT [id number] RACHEL HEATH CENTRAL NERVOUS SYSTEM: The patient is awake and alert. There are no obvious cranial nerve abnormality. The gait was not tested. IMAGING: Chest radiograph: There is hyperinflation, no acute infiltrate. The ET tube is in good position. LABORATORY DATA: CBC: The WBC of 4.7, hemoglobin 14, hematocrit 40.4, the platelet count 254. Chemistry: Sodium 139, potassium 3.6, BUN is 4, creatinine is 1, glucose 108. ABG: The pH is 7.52, pCO2 of 37.9, the pO2 is 130, the bicarbonate is 31. IMPRESSION: 1. Acute respiratory failure secondary to drug overdose. 2. Drug overdose. 3. Acute mental status changes secondary to multi-drug overdose. 4. Suicidal ideation, suicidal attempt. RECOMMENDATION: 1. We will continue mechanical ventilation. When the patient becomes more awake and alert, we will wean him and adjust the ventilator setting. 2. GI and DVT stress ulcer prevention. 3. Follow up labs and chest radiograph. 4. Psych consult when the patient is extubated. Discuss with Dr. Richey. Dr. Richey, once again, thank you for involving me in the care of Mr. Heath. The critical care time is 40 minutes. TRANSINT:[id number] Voice Confirmation ID: [id number] DOCUMENT ID: [id number] HANDY SINGER MD at 1239 CC: VEL CHAPPELL [id number] DICTATION DATE: 10/16/16 1131 POWERHOUSE MECHANIC SUPERVISOR: 10/16/16 1215 DIS IN 10/22/16 [place] [id number] [place] [id number]
== END 2016-10-22 15:23 | disposition short-term general hospital (02) | DRG 917 ==
LOC: D.ER 22:05 → D.ICU 10-16 00:11
PROVIDERS: Emergency Medicine; Family Medicine; ADMIT Family Medicine
PROC: 0T9B70Z Drainage of Bladder with Drainage Device, Via Natural or Artificial Opening (ICD-10-PCS; 2016-10-15)
PROC: 0BH17EZ Insertion of Endotracheal Airway into Trachea, Via Natural or Artificial Opening (ICD-10-PCS; principal; 2016-10-16)
PROC: 0D9670Z Drainage of Stomach with Drainage Device, Via Natural or Artificial Opening (ICD-10-PCS; 2016-10-16)
PROC: 5A1945Z Respiratory Ventilation, 24-96 Consecutive Hours (ICD-10-PCS; 2016-10-16)
DX: T43.012A Poisoning by tricyclic antidepressants, intentional self-harm, initial encounter (principal); J96.00 Acute respiratory failure, unspecified whether with hypoxia or hypercapnia; J69.0 Pneumonitis due to inhalation of food and vomit; J15.212 Pneumonia due to Methicillin resistant Staphylococcus aureus; J15.6 Pneumonia due to other Gram-negative bacteria; T43.592A Poisoning by other antipsychotics and neuroleptics, intentional self-harm, initial encounter; F32.9 Major depressive disorder, single episode, unspecified; F20.9 Schizophrenia, unspecified; D64.9 Anemia, unspecified; G89.29 Other chronic pain; Z78.1 Physical restraint status

== ENCOUNTER 2019-05-22 11:50 | Emergency (ER) | payer MEDICAID ==
[~2019-05-22] VITALS: Ht 182.9 cm; Wt 63.6 kg
[~2019-05-22 11:50] MED LIST: AMITRIPTYLINE100 MG PO; CLEOCIN HCL300 MG PO; DESERYL100 MG PO; KLONOPIN1 MG PO; LEVAQUIN750 MG PO; ULTRAM50 MG PO; WELLBUTRIN XL150 M1 PO
[2019-05-22 12:00] VITALS: Ht 182.9 cm; Wt 63.6 kg
[2019-05-22] MEDS ORDERED: ELAVIL75 MG (12:00)
[2019-05-22] MEDS ORDERED: XANAX0.25 MG (12:01)
[2019-05-22 12:02] LABS: APPEARANCE CLEAR (CLEAR); BILIRUBIN NEGATIVE (NEGATIVE); COLOR STRAW (YELLOW); GLUCOSE NEGATIVE (NEGATIVE); KETONE NEGATIVE (NEGATIVE); NITRITE NEGATIVE (NEGATIVE); PROTEIN NEGATIVE (NEGATIVE); SPECIFIC GRAVITY 1.005 (1.005-1.020); UROBILINOGEN NORMAL (NORMAL)
[2019-05-22] MEDS ORDERED: ABILIFY2 MG (12:03)
[2019-05-22] MEDS ORDERED: HYDROCODON-ACE1 EA10 (12:03)
[2019-05-22 12:11] LABS: BASOPHILS 0.9 % (0-2); EOSINOPHILS 0.9 % (0-7); HEMATOCRIT 39.8 % (42.0-54.0); HEMOGLOBIN 14.6 g/dL (13.5-17.5); IMMATURE GRANULOCYTES 0.1 % (0-5); MCH 32.3 pg (26.0-34.0); MCHC 36.7 g/dL (31.0-37.0); MCV 88.1 fL (80.0-100.0); MONOCYTES 8.3 % (2-11); NEUTROPHILS 76.8 % (40-80); PLATELET COUNT 303 10x3/uL (130-400); RBC 4.52 10x6/uL (4.20-6.10); RDW 12.2 % (11.5-14.5); WBC 7.6 10x3/uL (4.8-10.8)
[2019-05-22 12:17] LABS: UDS - AMPHET POSITIVE QUAL (NEGATIVE); UDS - BARB NEGATIVE QUAL (NEGATIVE); UDS - BENZO NEGATIVE QUAL (NEGATIVE); UDS - COCAINE NEGATIVE QUAL (NEGATIVE); UDS - OPIATE NEGATIVE QUAL (NEGATIVE); UDS - PCP NEGATIVE QUAL (NEGATIVE); UDS - THC NEGATIVE QUAL (NEGATIVE)
[2019-05-22 12:28] LABS: ALBUMIN 4.2 g/dL (3.4-5.0); ALKALINE PHOSPHATASE 54 U/L (46-116); ALT (SGPT) 13 U/L (10-68); BILIRUBIN - TOTAL 0.65 mg/dL (0.2-1.3); CALC OSMOLALITY 282 mosm/kg (275-300); CALCIUM 9.3 mg/dL (8.5-10.1); CARBON DIOXIDE 29.8 mmol/L (21.0-32.0); CHLORIDE - SERUM 104 mmol/L (98-107); CREATININE - SERUM 0.9 mg/dL (0.6-1.3); GLUCOSE 101 mg/dL (74-106); POTASSIUM - SERUM 4.1 mmol/L (3.5-5.1); PROTEIN - SERUM 7.4 g/dL (6.4-8.2); SODIUM 143 mmol/L (136-145); UREA NITROGEN 7 mg/dL (7-18); eGFR NON AFRICAN AMERICAN > 90 mL/min (90-120)
--- NOTE | 2019-05-22 12:46 | NUR ---
DR JONES NOTIFIED AND LINE OF SIGHT SITTER ORDERED. SITTER AT BEDSIDE. NOTIFIED CHARGE NURSE AND ATTENDING IN REGARDS TO ASSESSMENT FINDINGS. RESOURCES GIVEN TO PT AND SAFETY PLAN INITIATED.
--- NOTE | 2019-05-22 12:50 | NUR ---
PATIENT EXITED HIS ROOM AND WALKED INTO BARBOZA, LOOKED INTO ROOM 21 AND MAKING AN OBSCENE JESTURE WITH HIS HAND AND SHOUTED OBSCENE WORDS TO THE PATIENT IN RM 21. PT IN ROOM 21 REMAINED QUIET AND MOTIONLESS.
[2019-05-22 22:21] VITALS: BP 122/78
== END 2019-05-22 14:28 ==
LOC: D.ER 11:50
PROVIDERS: Family Medicine
DX: R45.851 Suicidal ideations (principal); F15.129 Other stimulant abuse with intoxication, unspecified; R45.850 Homicidal ideations